=== PATIENT | female | born 1990 | race Caucasian/White ===

== ENCOUNTER → 2020-01-22 | Outpatient (REF) | payer BC ==
[2020-01-22 15:47] LABS: HEMOGLOBIN 11.8 g/dl (12.0-15.5); MEAN CORPUSCULAR HEMOGLOBIN 27.7 pg (27.0-33.0); MEAN CORPUSCULAR HGB CONC 32.8 g/dl (32.0-36.5); MEAN CORPUSCULAR VOLUME 84.5 fl (80.0-96.0); PLATELET COUNT, AUTOMATED 376 10^3/uL (150-450); RED BLOOD COUNT 4.26 10^6/uL (4.00-5.40); WHITE BLOOD COUNT 7.5 10^3/uL (4.0-10.0)
[2020-01-22 16:21] LABS: HCG, SERUM QUANTITATIVE 123117 MIU/ML
[2020-01-22 16:25] LABS: RUBELLA IgG QUALITATIVE IMMUNE (IMMUNE)
[2020-01-22 16:54] LABS: HIV 1&2 SCREEN CENTAUR NEGATIVE (NEGATIVE)
[2020-01-25 10:20] LABS: HEPATITIS B SURFACE ANTIGEN NEGATIVE (NEGATIVE)
[2020-01-25 10:48] LABS: HEPATITIS C VIRUS ABY INDEX < 0.0 INDEX (<0.8)
== END ==
LOC: M LAB REF 14:45
PROVIDERS: ATTEND Obstetrics & Gynecology
DX: Z32.01 Encounter for pregnancy test, result positive (principal)

== ENCOUNTER → 2020-01-27 | Outpatient (CLI) | payer BC ==
--- NOTE | 2020-01-27 20:32 | REP ---
First trimester obstetric sonography: History: Supervision of . Findings: Transabdominal scanning demonstrates a single living intrauterine gestation. Embryonic pole measures 43 mm in crown-rump length. This corresponds with a gestational age estimate of 11 weeks 1 day. heart rate is recorded at 163 beats per minute. No subchorionic hemorrhage is seen. No extrauterine abnormalities observed. Impression: Viable single intrauterine gestation at 11 weeks 1 day by crown-rump length. [facility]A by sonography August 16, 2020. Electronically Signed by Juan Manuel Leigh MD 01/28/2020 08:57 A
== END ==
LOC: M RAD 17:37 → EDUNIT# 18:00
PROVIDERS: ATTEND Obstetrics & Gynecology
DX: O36.80X0 Pregnancy with inconclusive fetal viability, not applicable or unspecified (principal); Z3A.11 11 weeks gestation of pregnancy

== ENCOUNTER → 2020-04-05 | Outpatient (CLI) | payer BC ==
--- NOTE | 2020-04-06 04:22 | REP ---
Clinical: Anatomical evaluation. Comparison: 01/27/2020 . Findings: Examination demonstrates a single live intrauterine in variable presentation. motion is identified by technologist. Placenta is noted posterior and grade I without evidence for placenta previa or abruption. Amniotic fluid volume is normal. Cervix measures 3.9 cm in length and appears closed. No evidence for nuchal cord. Gestational age by LMP 20 weeks 3 days with AURA 08/20/2020 . Gestational age by current measurements 20 weeks 0 days with AURA 08/23/2020 . FHR equals 146 beats per minute. BPD 4.7 cm 20 weeks 1 day HC 17.9 cm 20 weeks 2 days AC 15.1 cm 20 weeks 2 days FL 3.3 cm 20 weeks 1 day HC/AC ratio 1.18 Estimated weight 344 grams ( 41st percentile). Anatomical assessment demonstrates normal structures including cranium, choroid plexus, cavum, cerebellum/posterior fossa, facial features, lungs, four-chamber heart/ventricular outflow tracts, diaphragm, stomach, cord insertion/three-vessel cord, kidneys/bladder, spine, and extremities. Impression: Single live intrauterine in variable presentation demonstrating appropriate estimated weight and growth. Anatomical assessment is complete and normal.
== END ==
LOC: M WHC 13:52
PROVIDERS: ATTEND Advanced Practice Midwife
DX: Z34.02 Encounter for supervision of normal first pregnancy, second trimester (principal); Z3A.20 20 weeks gestation of pregnancy

== ENCOUNTER → 2020-05-23 | Outpatient (REF) | payer BC ==
[2020-05-23 11:11] LABS: HEMATOCRIT 32.8 % (36.0-47.0); HEMOGLOBIN 11.1 g/dl (12.0-15.5); MEAN CORPUSCULAR HEMOGLOBIN 30.2 pg (27.0-33.0); MEAN CORPUSCULAR HGB CONC 33.8 g/dl (32.0-36.5); MEAN CORPUSCULAR VOLUME 89.1 fl (80.0-96.0); PLATELET COUNT, AUTOMATED 377 10^3/uL (150-450); RED BLOOD COUNT 3.68 10^6/uL (4.00-5.40); WHITE BLOOD COUNT 8.8 10^3/uL (4.0-10.0)
== END ==
LOC: M PLALAB 07:54
PROVIDERS: ATTEND Advanced Practice Midwife
DX: O34.211 Maternal care for low transverse scar from previous cesarean delivery (principal)

== ENCOUNTER → 2020-05-26 | Outpatient (CLI) | payer BC | LOC: M LAB 07:41 | PROVIDERS: ATTEND Advanced Practice Midwife | DX: Z36.89 Encounter for other specified antenatal screening (principal); O99.810 Abnormal glucose complicating pregnancy; Z3A.00 Weeks of gestation of pregnancy not specified ==

== ENCOUNTER → 2020-07-26 | Outpatient (REF) | payer BC ==
[~2020-07-26] MED LIST: IBUP80TA PO; PERCOCET PO; PRENTAB9 PO
== END ==
LOC: M LAB REF 10:30
PROVIDERS: ATTEND Advanced Practice Midwife
DX: Z34.83 Encounter for supervision of other normal pregnancy, third trimester (principal)

== ENCOUNTER 2020-08-18 13:16 | Inpatient (IN) | payer BC ==
[~2020-08-18] VITALS: Ht 162.6 cm; Wt 67.6 kg
[2020-08-18] VITALS (9 sets, daily range): BP systolic 97–127; BP diastolic 55–80
[2020-08-18] MEDS ORDERED: OXYTOCIN DRIP 30 UNITS in IV 1 EA IV SCH ×2 (15:15→21:06)
[2020-08-18] MEDS ORDERED: OXYTOCIN 30 UNITS IN 0.9% NaCl 500ML IV BAG (J2590) As Ordered ONE (15:33)
--- NOTE | 2020-08-18 15:39 | HPEPDOC ---
Obstetrical History & Physical General Date of Admission Aug 18, 2020 at 14:08 History of Present Illness 22-year-old 2 para 1 who presents at 39 weeks 2 days gestational age wit h leakage of fluid that was clear approximately at 10pm. 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 BREAST: . ABDOMEN: Gravid and non-tender to touch. FETUS: Is vertex (VTX) by sterile vaginal examination (SVE), fetus is vertex (VTX) by Fernandez. HEART RATE: Regular rate and rhythm. LUNGS: Clear to auscultation (CTA). EXTREMITIES: No edema. No clonus. Deep tendon reflexes (DTRs) + . Laboratory Data 24H LABS Laboratory Tests 2 08/18/20 15:15: Serology Scanned Report Hepatitis B Testing Pertinent Laboratoy Data Blood Type: B+ RBC Antibody Screen: Negative HIV: Negative Hepatitis B: Negative Rapid Plasma Reagin: Nonreactive Rubella: Immune Anatomy Ultrasound Placenta Location: Posterior Normal Anatomy: Yes Placenta Previa: No Vaginal Examination Dilation: 1cm Effacement: 30% Station: -3 Cervical Consistency: Medium Cervical Position: Posterior Presentation: Cephalic presentation Assessment Variability: Moderate Accelerations: Positive Tocometer Contractions: No Assessment/Plan Assessment 1. 30-year-old 2 para 1 at 39+ weeks with rupture of membranes . 2 reassuring status 3 history of prior section -Patient's been thoroughly counseled in regards to delivery discuss repeat section versus trial of labor after section. I discussed the augmentation of labor with Pitocin and reviewed risks with each mode of delivery. Patient is also been thoroughly counseled in regards to induction labor as well as procedures performed in labor and delivery. She's been verbally consented for emergency surgery, blood products and anesthesia. She desires to proceed with trial of labor with augmentation of labor with Pitocin Plan Admit and orient. 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 Group B Streptococcus (GBS) negative. Labs and intravenous (IV) per unit protocol. Counseled on Pitocin and induction of labor (IOL). C-S as appropriate. ARACELY MOLINA MD. Aug 18, 2020 15:38
[2020-08-18] MEDS ORDERED: PRENTAB9 PO (15:41)
[2020-08-18] MEDS: LR 1,000 ML IV SCH ×2 (15:54→20:52)
[2020-08-18 15:58] LABS: HEMATOCRIT 33.5 % (36.0-47.0); HEMOGLOBIN 11.4 g/dl (12.0-15.5); MEAN CORPUSCULAR HEMOGLOBIN 30.2 pg (27.0-33.0); MEAN CORPUSCULAR VOLUME 88.6 fl (80.0-96.0); PLATELET COUNT, AUTOMATED 348 10^3/uL (150-450); RED BLOOD COUNT 3.78 10^6/uL (4.00-5.40); WHITE BLOOD COUNT 11.5 10^3/uL (4.0-10.0)
[2020-08-18] MEDS ORDERED: ceFAZolin 2 GM/D5W 50 ML IV BAG (J0690 PER 500MG) As Ordered ONE (20:21)
[2020-08-18] MEDS ORDERED: BICITRA 30ML SOLN UDC As Ordered ONE (20:23)
[2020-08-18] MEDS ORDERED: AZITHROMYCIN INJ 500MG VIAL (J0456 PER 500MG) As Ordered ONE (20:45)
[2020-08-18] MEDS ORDERED: AZITHROMYCIN INJ 500 MG, VIAL MATE ADAPTER 1 EACH in D5W 250 ML IV ONE (20:45)
[2020-08-18] MEDS ORDERED: BICITRA 30ML SOLN UDC PO ONE (20:45)
[2020-08-18] MEDS ORDERED: LR 1,000 ML IV SCH ×2 (21:06→22:00)
--- NOTE | 2020-08-18 21:08 | ROOPDOC ---
[facility] Report Of Operation Report of Operation DATE OF PROCEDURE: 08/18/20 SURGEON: Tereza Echeverria M.D. STEEL ANALYST: Rufino Lopez M.D. ( essential for the emergency of surgery for tissue retractions, exposure and delivery of ) PROCEDURE: Repeat section PREOPERATIVE DIAGNOSIS: 1. History of prior section POSTOPERATIVE DIAGNOSIS: 1. History of prior section ANESTHESIA: Spinal ESTIMATED BLOOD LOSS: 500 mL URINE OUTPUT: 100 mL INTRAVENOUS FLUIDS:1000 mL of lactated Ringer's solution PREOPERATIVE ANTIBIOTICS:. 2 g of [id number] azithromycin OPERATIVE FINDINGS: Liveborn female infant, Apgars 9 and 9. Weight 3520 g or 7 lbs. 12 oz. SPECIMENS: None INDICATION FOR OPERATION: This patient is a 30-year-old 2 para 1 who presented at 39+ weeks with spontaneous rupture of membranes. Her history is si gnificant for previous section and she has been counseled on mode of delivery. She initially desired augmentation of labor for an attempt a trial labor after section. Approximate 4 hours into augmentation of labor patient opted for repeat section and declined further augmentation of labor. DESCRIPTION OF PROCEDURE: After informed consent was obtained and written consent was reviewed. The patient was brought to the operating room where spinal anesthesia was placed. She was then placed in the supine position with a left lateral tilt. Yi catheter was placed and to gravity. Patient was then prepped and draped in the normal sterile fashion. A timeout operating room was performed identifying the patient, procedure be performed as well as drug allergies. Anesthesia was tested and deemed to be adequate. Pfannenstiel skin incision was made and this was carried down to the underlying rectus fascia. The fascia was then scored and this incision was extended bilaterally. The fascia was then dissected off the underlying rectus muscle superiorly and inferiorly. The rectus muscles were then in the midline. The peritoneum is then entered. Vesicouterine peritoneum was then tented and excised and a bladder flap was created. Mobius retractor was then placed. Next, a curvilinear incision was then made in the lower uterine segment. Amniotomy was performed, productive, clear fluid. The head was brought to the level of the incision atraumatically and delivered along the shoulders and corpus. The cord was clamped x2. The infant was brought over to the warmer with a good cry. Placenta was drained and delivered grossly intact. The uterus was cleared of all clots and debris and the uterine incision was then closed using 0 Vicryl in a running locking fashion followed. The abdomen was suctioned. Surgical sites reinspected and noted be hemostatic. The retractor was then removed. The anterior peritoneum was then reapproximated with 3-0 Vicryl. The rectus muscles were reapproximated 3-0 Vicryl. The fascia was then closed using 0 Vicryl in a running nonlocking fashion. The subcutaneous tissues was then irrigated and suctioned. Several subdermal stitch is placed using 3-0 Vicryl and the skin was closed with 4-0 Monocryl and subcuticular fashion. This incision was then cleaned and dried and was dressed. The patient was then taken to recovery in stable condition. All counts were correct. My surgical product sales consultant Dr. Lopez played in an essential role during the operation. He assisted with tissue identification retraction, delivery of the , as well as wound closure. TEREZA ECHEVERRIA MD. Aug 18, 2020 21:08
[2020-08-18] MEDS ORDERED: NALBUPHINE HCL 10 MG/ML AMP (J2300) IV PRN (21:09)
[2020-08-18] MEDS ORDERED: diphenhydrAMINE 50MG/ML VIAL (J1200) IV PRN (21:09)
[2020-08-18] MEDS ORDERED: ONDANSETRON 4MG/2ML VIAL IV PRN ×3 (21:09→22:00)
[2020-08-18] MEDS ORDERED: METOCLOPRAMIDE INJ 10MG/2ML VIAL (J2765 PER 1) IV PRN ×2 (21:09→22:00)
[2020-08-18] MEDS ORDERED: NALOXONE INJ 0.4MG/1ML VIAL (J2310 PER 1MG) IV PRN ×2 (21:09)
[2020-08-18] MEDS ORDERED: RHOGAM 300 MCG (1500 IU) INJ (J2790) IM SCH (21:15)
[2020-08-18] MEDS ORDERED: MOM 30ML SUSPENSION UDC PO PRN (21:15)
[2020-08-18] MEDS ORDERED: PERCOCET 5MG/325MG TAB PO PRN ×3 (21:15→22:00)
[2020-08-18] MEDS ORDERED: MEASLES,MUMPS,RUBELLA VACCINE INJ (MMR-II) (90707) SC SCH (21:15)
[2020-08-18] MEDS ORDERED: KETOROLAC 30 MG/ML 1ML VIAL IV SCH (21:15)
[2020-08-18] MEDS ORDERED: PHENYLephrine HCL 500 MCG/5 ML (100MCG/ML) SYRINGE (J2370) ONE (21:27)
[2020-08-18] MEDS ORDERED: MORPHINE PRES-FREE INJ 10 MG/10 ML VIAL (J2274) ONE (21:27)
[2020-08-18] MEDS ORDERED: KETOROLAC 60MG 2ML VIAL ONE (21:27)
[2020-08-18] MEDS ORDERED: dexameTHASONE 4 MG/ML 1ML VIAL (J1100 PER 1MG) ONE (21:27)
[2020-08-18] MEDS ORDERED: ONDANSETRON 4MG/2ML VIAL ONE (21:27)
[2020-08-18] MEDS ORDERED: OXYTOCIN 30 UNITS IN 0.9% NaCl 500ML IV BAG (J2590) ONE (21:27)
[2020-08-18] MEDS ORDERED: KETOROLAC 30 MG/ML 1ML VIAL IV PRN (21:55)
[2020-08-18] MEDS ORDERED: fentaNYL 100 MCG/2 ML INJECTION (J3010) IV PRN (22:00)
[2020-08-18] MEDS ORDERED: MEPERIDINE INJ 25 MG/ML VIAL (J2175) IV PRN (22:00)
[2020-08-19] VITALS (8 sets, daily range): BP systolic 101–113; BP diastolic 51–67
[2020-08-19] MEDS: KETOROLAC 30 MG/ML 1ML VIAL IV SCH ×3 (04:01→15:53)
[2020-08-19] MEDS ORDERED: ceFAZolin SOD 2 GM in IV 1 EA IV ONE (06:00)
[2020-08-19 07:23] LABS: HEMATOCRIT 27.3 % (36.0-47.0); MEAN CORPUSCULAR HGB CONC 33.3 g/dl (32.0-36.5); MEAN CORPUSCULAR VOLUME 90.1 fl (80.0-96.0); PLATELET COUNT, AUTOMATED 308 10^3/uL (150-450); RED BLOOD COUNT 3.03 10^6/uL (4.00-5.40); WHITE BLOOD COUNT 15.6 10^3/uL (4.0-10.0)
[2020-08-19 07:32] LABS: HEMOGLOBIN 9.1 g/dl (12.0-15.5)
--- NOTE | 2020-08-19 07:38 | IPNPDOC ---
Progress Note Date of Service: Aug 19, 2020 Day#: 1 Progress Note SUBJECT: Doing well without complaints. Ambulating, voiding and pain is well- controlled. Reports minimal lochia. OBJECTIVE: VITAL SIGNS: Within normal limits, afebrile. Alert and oriented times three. Abdomen: Fundus firm at U-2. Soft, NTTP. Incision: dressed Ext: neg calf tenderness. ASSESSMENT: /postoperative day #1 status post delivery. Recovering in stable condition. PLAN: 1. Continue routine /postoperative care 2. Discharge plans for tomorrow VS, I&O, 24H, Fishbone Vital Signs/I&O Vital Signs Date Time Temp Pulse Resp B/P (MAP) Pulse Ox O2 Delivery O2 Flow Rate FiO2 08/19/20 06:00 97.6 68 16 101/54 (70) 98 Room Air I&O- Last 24 Hours up to 6 AM 08/19/20 06:00 Intake Total 3772 ml Output Total 2250 ml Balance 1522 ml Laboratory Data 24H LABS Laboratory Tests 2 08/18/20 15:15: Serology Scanned Report Hepatitis B Testing 08/18/20 15:25: Nucleated Red Blood Cells % (auto) 0.0, Syphilis Serology NONREACTIVE 08/19/20 06:37: Nucleated Red Blood Cells % (auto) 0.0 CBC/BMP Laboratory Tests 08/18/20 15:25 08/19/20 06:37 ARACELY MOLINA MD. Aug 19, 2020 07:38
[2020-08-19] MEDS: PRENATAL VITAMINS CHEWABLE TABLET PO SCH (07:43)
[2020-08-19] MEDS: DOCUSATE SODIUM 100 MG CAP PO SCH ×2 (07:43→19:55)
[2020-08-20] MEDS: IBUPROFEN 800 MG TAB PO SCH ×2 (00:44→08:52)
[2020-08-20 06:00] VITALS: BP 100/63
--- NOTE | 2020-08-20 07:02 | DS.PDOC ---
Discharge Summary General Date of Admission Aug 18, 2020 at 14:08 Date of Discharge 08/20/2020 Discharge Summary PROCEDURES PERFORMED DURING STAY: Repeat section. ADMITTING DIAGNOSES: 1. PROM @ 39+ gestation 2. TOLAC DISCHARGE DIAGNOSES: 1. Elective repeat section COMPLICATIONS/CHIEF COMPLAINT: SROM. HISTORY OF PRESENT ILLNESS: 30yo G2 now P2 admitted 08/18/2020 with complaints of spontaneously ruptured membranes. Initially desired TOLAC then decided for repeat section. HOSPITAL COURSE: Repeat section performed by Dr Echeverria 08/18/2020. She reports adequate pain management, is . Tolerating diet well. Voiding and passing flatus. DISCHARGE MEDICATIONS: Please see below. ALLERGIES: Please see below. PHYSICAL EXAMINATION ON DISCHARGE: VITAL SIGNS: Please see below. GENERAL: No distress HEENT: WNL NECK: Supple CARDIOVASCULAR EXAMINATION: Normotensive, HRR RESPIRATORY EXAMINATION: Clear and unlabored ABDOMINAL EXAMINATION: Fundus firm, dressing intact with old drainage EXTREMITIES: Equal strength and motion SKIN: Intact NEUROLOGICAL EXAMINATION: Grossly intact PSYCHIATRIC EXAMINATION: Appropriate LABORATORY DATA: Please see below. PROGNOSIS: Good ACTIVITY: As tolerated. Pelvic rest DIET: As tolerated DISCHARGE PLAN: Home today. Routine precautions DISPOSITION: Home. DISCHARGE INSTRUCTIONS: 1. Pelvic rest. Call office with fever, nausea/vomiting/chills, foul lochia. Remove dressing day 5. Oral pain medications as ordered. RTO 2 wks and 6 wks DISCHARGE CONDITION: Stable. TIME SPENT ON DISCHARGE: Greater than 10 minutes. Vital Signs/I&Os Vital Signs Date Time Temp Pulse Resp B/P (MAP) Pulse Ox O2 Delivery O2 Flow Rate FiO2 08/20/20 06:00 98.4 85 16 100/63 (75) 08/19/20 22:00 98 Room Air I&O- Last 24 Hours up to 6 AM 08/20/20 06:00 Output Total 780 ml Balance -780 ml Discharge Medications Scheduled No.137/Iron/Folic Acd ( Vitamin Tablet) 1 Each Tablet, 1 TAB PO DAILY, (Reported) Allergies Coded Allergies: No Known Allergies (Unverified , 08/18/20) Aissatou Aguero CNM Aug 20, 2020 07:02
[2020-08-20] MEDS ORDERED: IBUP80TA PO (07:05)
[2020-08-20] MEDS ORDERED: PERCOCET PO (07:05)
[2020-08-20] MEDS: PRENATAL VITAMINS CHEWABLE TABLET PO SCH (08:52)
[2020-08-20] MEDS: DOCUSATE SODIUM 100 MG CAP PO SCH (08:52)
== END 2020-08-20 12:40 | disposition home or self-care (01) | DRG 540 ==
LOC: M LDO 13:16 → M LDI 14:08 → M OBS 23:38
PROVIDERS: ADMIT Obstetrics & Gynecology; ATTEND Obstetrics & Gynecology
PROC: 10D00Z1 Extraction of Products of Conception, Low, Open Approach (ICD-10-PCS; principal; 2020-08-18 22:26)
DX: O34.211 Maternal care for low transverse scar from previous cesarean delivery (principal); Z37.0 Single live birth; Z3A.39 39 weeks gestation of pregnancy

== ENCOUNTER → 2022-06-11 | Outpatient (REF) | payer BC | LOC: M PLALAB 10:28 | PROVIDERS: ATTEND Obstetrics & Gynecology | DX: Z12.4 Encounter for screening for malignant neoplasm of cervix (principal); B37.9 Candidiasis, unspecified | CPT/HCPCS: 87624; G0123 ==

== ENCOUNTER → 2023-02-19 | Outpatient (CLI) | payer BC ==
[2023-02-19 14:19] LABS: MEAN CORPUSCULAR HEMOGLOBIN 28.5 pg (27.0-33.0); MEAN CORPUSCULAR HGB CONC 33.3 g/dl (32.0-36.5); MEAN CORPUSCULAR VOLUME 85.5 fl (80.0-96.0); PLATELET COUNT, AUTOMATED 401 10^3/uL (150-450); RED BLOOD COUNT 4.21 10^6/uL (4.00-5.40); WHITE BLOOD COUNT 8.5 10^3/uL (4.0-10.0)
[2023-02-19 15:15] LABS: HIV 1&2 SCREEN CENTAUR NEGATIVE (NEGATIVE)
[2023-02-19 16:28] LABS: GC DNA AMPLIFICATION NEGATIVE (NEGATIVE)
[2023-02-19 16:31] LABS: HEPATITIS C VIRUS ABY INDEX 0.1 INDEX (<0.8)
== END ==
LOC: M PLALAB 11:52
PROVIDERS: ATTEND Specialist
DX: Z34.81 Encounter for supervision of other normal pregnancy, first trimester (principal)

== ENCOUNTER → 2023-04-18 | Outpatient (CLI) | payer BC | LOC: M WHC 13:14 | PROVIDERS: ATTEND Advanced Practice Midwife | DX: Z34.82 Encounter for supervision of other normal pregnancy, second trimester (principal); Z3A.22 22 weeks gestation of pregnancy ==

== ENCOUNTER → 2023-06-06 | Outpatient (CLI) | payer BC ==
[2023-06-06 10:49] LABS: HEMATOCRIT 31.1 % (36.0-47.0); HEMOGLOBIN 10.6 g/dl (12.0-15.5); MEAN CORPUSCULAR HEMOGLOBIN 29.9 pg (27.0-33.0); MEAN CORPUSCULAR HGB CONC 34.1 g/dl (32.0-36.5); MEAN CORPUSCULAR VOLUME 87.6 fl (80.0-96.0); PLATELET COUNT, AUTOMATED 332 10^3/uL (150-450); RED BLOOD COUNT 3.55 10^6/uL (4.00-5.40); WHITE BLOOD COUNT 8.5 10^3/uL (4.0-10.0)
== END ==
LOC: M PLALAB 07:20
PROVIDERS: ATTEND Advanced Practice Midwife
DX: Z34.82 Encounter for supervision of other normal pregnancy, second trimester (principal)

== ENCOUNTER → 2023-07-31 | Outpatient (REF) | payer BC | LOC: M PLALAB 10:49 | PROVIDERS: ATTEND Obstetrics & Gynecology | DX: Z34.00 Encounter for supervision of normal first pregnancy, unspecified trimester (principal) ==

== ENCOUNTER 2023-08-30 02:47 | Inpatient (IN) | payer BC ==
[2023-08-30] VITALS (8 sets, daily range): BP systolic 98–104; BP diastolic 52–65; O2SAT 95–100
[~2023-08-30] VITALS: Ht 162.6 cm; Wt 65.7 kg
[2023-08-30] MEDS ORDERED: LACTATED RINGER'S 1000 ML IV STA (03:28)
[2023-08-30] MEDS ORDERED: ceFAZolin SOD 2 GM in IV 1 EA IV ONE (03:30)
[2023-08-30] MEDS ORDERED: LR 1,000 ML IV SCH (03:30)
[2023-08-30] MEDS ORDERED: **NOTE PATIENT COMMENT** MISC XX SCH ×2 (03:55→04:50)
[2023-08-30] MEDS ORDERED: diphenhydrAMINE 50MG/ML VIAL IV PRN ×2 (03:55→04:50)
[2023-08-30] MEDS ORDERED: METOCLOPRAMIDE INJ 10MG/2ML VIAL IV PRN ×2 (03:55→04:50)
[2023-08-30] MEDS ORDERED: ONDANSETRON 4MG 2ML VIAL IV PRN ×3 (03:55→05:40)
[2023-08-30] MEDS ORDERED: SLF 3 ML SYR IV SCH ×2 (03:55→04:50)
[2023-08-30] MEDS ORDERED: HYDROMORPHONE HCL 0.5 MG/ 0.5 ML SYRINGE IV PRN (03:55)
[2023-08-30] MEDS ORDERED: oxyCODONE 5MG TAB PO PRN ×2 (03:55→04:50)
[2023-08-30] MEDS ORDERED: NALOXONE INJ 0.4MG/1ML VIAL IV PRN ×4 (03:55→04:50)
[2023-08-30] MEDS ORDERED: fentaNYL 100 MCG/2 ML INJECTION IV PRN ×2 (03:55→04:50)
[2023-08-30] MEDS ORDERED: MEPERIDINE 25 MG/ML 1ML VIAL IV PRN (03:55)
[2023-08-30 03:58] LABS: HEMATOCRIT 32.7 % (36.0-47.0); HEMOGLOBIN 11.3 g/dl (12.0-15.5); MEAN CORPUSCULAR HEMOGLOBIN 29.8 pg (27.0-33.0); MEAN CORPUSCULAR HGB CONC 34.6 g/dl (32.0-36.5); MEAN CORPUSCULAR VOLUME 86.3 fl (80.0-96.0); PLATELET COUNT, AUTOMATED 328 10^3/uL (150-450); RED BLOOD COUNT 3.79 10^6/uL (4.00-5.40); WHITE BLOOD COUNT 10.8 10^3/uL (4.0-10.0)
[2023-08-30] MEDS ORDERED: MORPHINE PRES-FREE INJ 10 MG/10 ML VIAL As Ordered ONE (05:01)
[2023-08-30] MEDS ORDERED: METOCLOPRAMIDE INJ 10MG/2ML VIAL As Ordered ONE (05:01)
[2023-08-30] MEDS ORDERED: KETOROLAC 60MG 2ML VIAL As Ordered ONE (05:01)
[2023-08-30] MEDS ORDERED: ONDANSETRON 4MG 2ML VIAL As Ordered ONE (05:01)
[2023-08-30] MEDS ORDERED: OXYTOCIN 30UNITS IN 0.9% NaCl 500ML IV BAG As Ordered ONE ×2 (05:01→05:27)
[2023-08-30] MEDS ORDERED: ACETAMINOPHEN 1000MG 100ML IV BAG As Ordered ONE (05:01)
[2023-08-30] MEDS ORDERED: PHENYLephrine 500MCG 5ML (100MCG/ML) SYRINGE As Ordered ONE (05:03)
[2023-08-30] MEDS ORDERED: RHOGAM 300MCG (1500IU) INJ IM SCH (05:40)
[2023-08-30] MEDS ORDERED: PERCOCET 5MG/325MG TAB PO PRN ×2 (05:40)
[2023-08-30] MEDS ORDERED: DOCUSATE SODIUM 100MG CAPSULE PO PRN (05:40)
[2023-08-30] MEDS ORDERED: OXYTOCIN DRIP 30 UNITS in IV 1 EA IV SCH (05:40)
[2023-08-30] MEDS ORDERED: SIMETHICONE 80MG CHEW TAB PO PRN (05:40)
[2023-08-30] MEDS: PRENATAL VITAMINS CHEWABLE TABLET PO SCH (09:00)
[2023-08-30] MEDS: LR 1,000 ML IV SCH ×2 (11:25→13:40)
[2023-08-30] MEDS: KETOROLAC 30 MG/ML 1ML VIAL IV SCH ×3 (11:33→22:57)
[2023-08-31] VITALS (7 sets, daily range): BP systolic 98–127; BP diastolic 55–66; TEMP 97.7; O2SAT 97–100
[2023-08-31] MEDS: IBUPROFEN 800 MG TAB PO SCH ×3 (06:40→23:19)
[2023-08-31 07:50] LABS: HEMATOCRIT 24.3 % (36.0-47.0); HEMOGLOBIN 8.2 g/dl (12.0-15.5); MEAN CORPUSCULAR HEMOGLOBIN 30.4 pg (27.0-33.0); MEAN CORPUSCULAR HGB CONC 33.7 g/dl (32.0-36.5); PLATELET COUNT, AUTOMATED 240 10^3/uL (150-450); WHITE BLOOD COUNT 9.7 10^3/uL (4.0-10.0)
[2023-08-31] MEDS: PRENATAL VITAMINS CHEWABLE TABLET PO SCH (10:11)
[2023-09-01 02:00] VITALS: BP 124/62; O2SAT 99
[2023-09-01] MEDS ORDERED: PERCOCET PO (05:48)
[2023-09-01] MEDS ORDERED: IBUP80TA PO (05:48)
[2023-09-01] MEDS ORDERED: COLA100C5 PO (05:48)
[2023-09-01 05:56] VITALS: BP 115/67; O2SAT 99
[2023-09-01] MEDS: IBUPROFEN 800 MG TAB PO SCH (06:33)
[2023-09-01] MEDS: PRENATAL VITAMINS CHEWABLE TABLET PO SCH (08:04)
[2023-09-01] MEDS ORDERED: MEASLES,MUMPS,RUBELLA VACCINE INJ (MMR-II) SC.IMMUN ONE (09:00)
== END 2023-09-01 11:24 | disposition home or self-care (01) | DRG 540 ==
LOC: M LDI 02:47 → M OBS 07:36
PROVIDERS: ADMIT Obstetrics & Gynecology; ATTEND Obstetrics & Gynecology
PROC: 0UB70ZZ Excision of Bilateral Fallopian Tubes, Open Approach (ICD-10-PCS; 2023-08-30)
PROC: 10D00Z1 Extraction of Products of Conception, Low, Open Approach (ICD-10-PCS; principal; 2023-08-30 09:30)
DX: O34.211 Maternal care for low transverse scar from previous cesarean delivery (principal); Z30.2 Encounter for sterilization; Z37.0 Single live birth; Z3A.40 40 weeks gestation of pregnancy

== ENCOUNTER → 2024-01-24 | Outpatient (REF) | payer BC ==
[~2024-01-24] MED LIST changes: +COLA100C5 PO
== END ==
LOC: M SFHCWAGY 15:36
PROVIDERS: ATTEND Obstetrics & Gynecology
DX: Z01.419 Encounter for gynecological examination (general) (routine) without abnormal findings (principal)
CPT/HCPCS: 87624; G0123